=== PATIENT | female | born 1945 | race Caucasian/White ===

== ENCOUNTER 2017-12-13 12:39 | Outpatient (CLI) | payer MEDICARE | END 2017-12-13 12:40 | disposition home or self-care (01) | LOC: DI 12:39 | PROVIDERS: ATTEND Registered Nurse | DX: R93.1 Abnormal findings on diagnostic imaging of heart and coronary circulation (principal) | CPT/HCPCS: 93306 ==

== ENCOUNTER 2022-08-22 11:49 | Outpatient (CLI) | payer MEDICARE | END 2022-08-22 11:50 | disposition short-term general hospital (02) | LOC: EMS 11:49 | DX: R07.89 Other chest pain (principal); R06.02 Shortness of breath; R06.2 Wheezing; J44.9 Chronic obstructive pulmonary disease, unspecified; F17.210 Nicotine dependence, cigarettes, uncomplicated; R53.1 Weakness | CPT/HCPCS: A0425; A0427 ==